=== PATIENT | male | born 1995 | race Caucasian/White ===

== ENCOUNTER 2021-04-22 15:26 | Day surgery (SDC) | payer SELFPAY ==
[~2021-04-22] VITALS: Ht 180.3 cm; Wt 109.1 kg
--- NOTE | 2021-04-22 13:21 | NUR ---
Patient admitted to room 5 ambulatory and is alert and oriented x3. Voices understanding of epidural blood patch and consent signed.
--- NOTE | 2021-04-22 14:05 | NUR ---
Returns to room 5 per cart and IV fluids infusing #20G RAC. Received Zofran 4mg IV prior to returning to room. Patient laying on the right side and denies headache or nausea. Instructed that she will be observed for the next 30 minutes.
--- NOTE | 2021-04-22 14:20 | NUR ---
Patient continues to rest on side and denies headache or nausea. IV fluid bolus completed.
--- NOTE | 2021-04-22 14:21 | NUR ---
Gomez Powell [employer] in the room and talks with the patient. Taken per cart to PACU for procedure.
--- NOTE | 2021-04-22 14:35 | NUR ---
IV discontinued and site is free of redness. Dresses self. Dismissal instructions given and voices understanding of these.
--- NOTE | 2021-04-22 14:40 | NUR ---
Patient dismissed to home driven by mother with instructions in hand.
[2021-04-22 16:39] VITALS: BP 135/90; PULSE 82; TEMP 98.3
[2021-04-22 18:45] VITALS: BP 140/91; PULSE 67
--- NOTE | 2021-04-22 18:45 | NUR ---
Patient returns to PACU isolation bay per cart and is awake and alert. IV fluids infusing. TEmp 97.8 and room air sats 99%. Dupree catheter to dependent drainage with yellow urine in bag. Denies pain or nausea. Drinking applejuice and eating muffins. Mother notified patient will be ready for discharge at 1915.
[2021-04-22 19:00] VITALS: BP 139/81; PULSE 72
--- NOTE | 2021-04-22 19:00 | NUR ---
Tolerated juice and muffins. Urine remains yellow.
[2021-04-22 19:10] VITALS: BP 132/80; PULSE 71
--- NOTE | 2021-04-22 19:10 | NUR ---
Continues to deny pain or nausea. IV discontinued and site is free of redness or swelling. Dupree catheter changed from dependent drainage bag to leg bag. Given patient instructions on how to do this. Provided 10cc syringe and alcohol wipes for home cares. Mother who is an RN will removed catheter on Tuesday. Patient was instructed to follow up with Dr. Lawrence in [place] in clinic.
--- NOTE | 2021-04-22 19:15 | NUR ---
Patient dismissal instructions signed and patient voices understanding of these. Patient dresses self.
--- NOTE | 2021-04-22 19:21 | NUR ---
Dismissed to home driven by mother and taken to the front door per wheelchair by Darlene DEL VALLE and assisted into vehicle.
[2021-04-22 21:10] VITALS: BP 127/83; PULSE 64
== END 2021-04-22 19:21 | disposition home or self-care (01) ==
LOC: SDCO 15:26
DX: N35.911 Unspecified urethral stricture, male, meatal (principal); U07.1 COVID-19
CPT/HCPCS: C1769; J0690; J1100; J1885; J2250; J2310; J2405; J2704; J2765; J3010; J7120

== ENCOUNTER 2022-08-03 12:11 | Day surgery (SDC) | payer OTHER ==
[~2022-08-03] VITALS: Ht 180.3 cm; Wt 105.9 kg
[2022-08-03] MEDS ORDERED: MEDROL 4MG DOSPA4 MG PO (13:25)
[2022-08-03] MEDS ORDERED: CIPRO 500MG TA500 MG PO (13:25)
[2022-08-03 13:26] VITALS: BP 143/76; PULSE 70; TEMP 97.3
[2022-08-03] MEDS ORDERED: PYRIDIUM 100MG100 MG PO (15:18)
[2022-08-03] MEDS ORDERED: NORCO 325 MG-51 TAB PO (15:19)
[2022-08-03 15:50] VITALS: BP 129/79; PULSE 67; TEMP 96.9
--- NOTE | 2022-08-03 15:50 | NUR ---
1550 PATIENT RETURNS TO ROOM 7 VIA CART. PATIENT IS ALERT AND ORIENTED. RESPIRATIONS EVEN AND UNLABORED. VITAL SIGNS OBTAINED. PATIENT CAME BACK WITH A 20F FONSECA CATHETER SECURED WITH STAT LOCK. URINE IS CLEAR AND YELLOW. PATIENT REQUESTED A MUFFIN, JELLO AND WATER. NO DIFFICULTIES SWALLOWING. PATIENT MOM AND GIRLFRIEND IN ROOM. 1615 DISCONTINUED IV FROM RIGHT HAND WITH NO DIFFICULTIES. 1630 REVIEWED DISCHARGE INSTRUCTIONS WITH PATIENT. PATIENT VERBALIZED UNDERSTANDING. 1640 PATIENT REQUESTED A LEG BAG TO BE PLACED PRIOR TO DISCHARGE. THIS NURSE DEMONSTRATED HOW TO PROPERLY PLACE LEG BAG AND PROVIDED CATHETER EDUCATION. 1700 PATIENT DISCHARGED FROM UNIT VIA WHEELCHAIR IN STABLE CONDITION.
[2022-08-03 16:05] VITALS: BP 139/77; PULSE 65
[2022-08-03 16:20] VITALS: BP 135/76; PULSE 60; TEMP 99
== END 2022-08-03 16:57 | disposition home or self-care (01) ==
LOC: SDCO 12:11
DX: N35.911 Unspecified urethral stricture, male, meatal (principal)
CPT/HCPCS: J0690; J2704; J3010; J7120